=== PATIENT | female | born 1990 | race Caucasian/White ===

== ENCOUNTER 2016-08-19 20:12 | Emergency (ER) | payer BC ==
[~2016-08-19] VITALS: Ht 165.1 cm; Wt 77.1 kg
[2016-08-19 20:27] VITALS: BP_SYST 147
[2016-08-19] MEDS ORDERED: ceFAZolin SODIUM 1 GM VIAL IM ONE (22:00)
[2016-08-19] MEDS ORDERED: LIDOCAINE 1%, 20 ML MDV 20 ML ONE (22:03)
[2016-08-19 22:10] VITALS: BP_SYST 147
== END 2016-08-19 22:10 | disposition home or self-care (01) ==
LOC: SED 20:12
DX: L03.116 Cellulitis of left lower limb (principal)
CPT/HCPCS: 96372; 99283; J0690; J2001